=== PATIENT | male | born 1975 | race Two or more races ===

== ENCOUNTER 2017-02-06 06:57 | Emergency (ER) | payer OTHER ==
[2017-02-06 07:06] VITALS: BP 121/77
[2017-02-06] MEDS ORDERED: TORADOL 60 MG VIAL ONE (07:26)
--- NOTE | 2017-02-06 07:26 | DR.MBACK ---
HPI - Time Seen Time seen: 07:22 - PCP Primary Care Physician: GURPREET - Complaint Chief Complaint Doctors Comments: Back pain w/o history of trauma. Pain is sharp , worse with flexion,10/10 onset 3-4 days ago. Walker trauma. Chief Complaint:: PT C/O SHARP LOW BACK THAT RADIATES DOWN HIS LEFT LEG THAT STARTED YESTERDAY..... PT WORKS AT [employer] AND HE PULLS HEAVY STUFF,,, PT DENIES ANY PROBLEMS VOIDING ... PICKING UP ITEMS MAKES IT WORSE. - Source History Provided: Patient - Mode of Arrival Mode of Arrival: Ambulatory - Timing Onset of Chief Complaint: 02/05/17 - Location Back Pain Location: BACK - Associated Signs and Symptoms Back Pain Symptoms: None Numbness: None Weakness: None PMH - PMH Past Medical History: Yes Past Medical History: Diabetes, Hypertension Past Surgical History: No - Family History History of Family Medical Conditions: No - Social History Does patient currently use any type of tobacco product: No Have you used tobacco products in the last 12 months: No Type of Tobacco Use: None Does any household member use tobacco: No Alcohol Use: None Do you use any recreational Drugs:: No Lives With: Family Lives Where: Home - infectious screening In the last 2 months have you had wt loss of >10#?: NO Have you had fever, night sweats or hemotysis?: No Have you traveled outside the country in the last 6 months?: No Isolation: Standard ROS - Review of Systems Eyes: No Symptoms Reported ENTM: No Symptoms Reported Respiratoy: No Symptoms Reported Cardiovascular: No Symptoms Reported Gastrointestinal/Abdominal: No Symptoms Reported Genitourinary: No Symptoms Reported Neurological: No Symptoms Reported Musculoskeletal: Back Pain Integumentary: No Symptoms Reported Hematologic/Lymphatic: No Symptoms Reported Endocrine: No Symptoms Reported Psychiatric: No Symptoms Reported All Other Systems: Reviewed and Negative PE - Vital Signs Vitals: Temperature 98.4 F Pulse Rate 76 Respiratory Rate 18 Blood Pressure 121/77 O2 Sat by Pulse Oximetry 97 - General General Appearance: Alert, In No Apparent Distress - Head Head Exam: Normal Inspection, Atraumatic - Eyes Eye exam: Normal Appearance, PERRL, EOMI - ENT ENT Exam: Normal Exam - Chest Chest Inspection: Normal Inspection - Respiratory Respiratory Exam: Normal Lung Sounds Bilat Respiratory Exam: Bilateral Clear to Auscultation - Cardiovascular Cardiovascular Exam: Regular Rate, Normal Rhythm - Abdominal Exam Abdominal Exam: Normal Inspection Abdominal Tenderness: negative: RUQ, RLQ, LUQ, LLQ, Epigastrium, Suprapubic, Diffuse, Mild, Moderate, Severe, Other - Rectal Rectal Exam: Deferred - Genitourinary Exam: Male: Deferred Scrotal Exam: Normal: Bilateral - Extremities Extremities Exam: Normal Inspection, Full ROM - Back Back Exam: Normal Inspection, Full ROM - Neurological Neurological Exam: Alert, Oriented X3, CN II-XII Intact, Normal Gait, Reflexes Normal - Psychiatric Psychiatric Exam: Normal Affect - Skin Skin Exam: Warm, Dry, Intact Course - Reevaluation 1st: Improved ROR - XRAY XRAY Interpreted by: Radiologist (Lumbar: 5 non rib bearing lumbar vertebra. No acute fracture or listhesis. Anterior wedging of the T11 through L1 vertebral bodies appears unchanged given technique. Moderate to severe disc space narrowing at L5-S1 with associated endplate sclerosis and anterior disc osteophyte comprexes appears unchanged. Multilevel facet arthrosis and anterior dis osteophyphyte complesex. Otherwise, the vertebral body heights and disc spaces are normal. The SI joints are normal.) - Diagnosis Discharge Problem: Narrowing of lumbar intervertebral disc space Osteoarthritis Qualifiers: Osteoarthritis location: spine Spinal region: lumbosacral Spinal osteoarthritis complication: with radiculopathy Qualified Code(s): M47.27 - Other spondylosis with radiculopathy, lumbosacral region Chronic back pain Qualifiers: Back pain location: low back pain Back pain laterality: unspecified Sciatica presence: without sciatica Qualified Code(s): M54.5 - Low back pain; G89.29 - Other chronic pain; G89.29 - Other chronic pain - Discharge Plan Condition: Stable - Follow ups/Referrals Follow ups/Referrals: [facility],None [Primary Care Provider] - 3 days - Instructions
[2017-02-06] MEDS: TORADOL 60 MG VIAL IM ONE (07:30)
--- NOTE | 2017-02-06 08:05 | RAD ---
HISTORY: Low back pain without trauma. Study: 3 views of the lumbar spine. Comparison: CT abdomen/pelvis dated October 27, 2015. Findings: 5 non-rib bearing lumbar vertebra. No acute fracture or listhesis. Anterior wedging of the T11 thro ugh L1 vertebral bodies appears unchanged given technique. Moderate to severe disc space narrowing at L5-S1 with associated endplate sclerosis and anterior disc osteophyte complexes appears unchanged. M ultilevel facet arthrosis and anterior disc osteophyte complexes. Otherwise, the vertebral body heigh ts and disc spaces are normal. The SI joints are normal. The soft tissue are unremarkable. IMPRESSION: Chronic findings as above. Reported By:
== END 2017-02-06 08:37 | disposition home or self-care (01) ==
LOC: ER 06:57
DX: M51.36 Other intervertebral disc degeneration, lumbar region (principal); M47.27 Other spondylosis with radiculopathy, lumbosacral region; M54.5 Low back pain; G89.29 Other chronic pain
CPT/HCPCS: 72100; 96372; 99282; 99283; J1885